=== PATIENT | female | born 1970 | race Two or more races ===

== ENCOUNTER → 2022-08-02 13:09 | Outpatient (BNVA) | payer OTHER, SELFPAY | PROVIDERS: PCP Nurse Practitioner Family; Visit Provider Nurse Practitioner Family | DX: R40.0 Somnolence (principal); R06.83 Snoring; G47.00 Insomnia, unspecified | CPT/HCPCS: 99202 ==

== ENCOUNTER → 2022-09-11 14:01 | Outpatient (REF) | payer OTHER, SELFPAY | LOC: HO.SL 14:01 | PROVIDERS: Visit Provider Nurse Practitioner Family | DX: G47.00 Insomnia, unspecified (principal); R06.83 Snoring; R40.0 Somnolence | CPT/HCPCS: 95806 ==

== ENCOUNTER → 2022-09-11 14:10 | Outpatient (BNV) | payer OTHER, SELFPAY | PROVIDERS: Visit Provider Psychiatry & Neurology Neurology | DX: R06.83 Snoring (principal) | CPT/HCPCS: 95806 ==